=== PATIENT | female | born 1995 ===

== ENCOUNTER 2020-04-15 03:34 | Inpatient (IN) ==
[2020-04-15] MEDS ORDERED: MEPERIDINE 50 MG/1 ML VIAL IV PRN (03:42)
[2020-04-15] MEDS ORDERED: ONDANSETRON 4 MG/2 ML VIAL IV PRN (03:42)
[2020-04-15] MEDS ORDERED: BUTORPHANOL 2 MG/ML VIAL IV PRN (03:42)
[2020-04-15] MEDS: LACTATED RINGERS 1,000 ML IV SCH ×2 (04:28→15:36)
[2020-04-15] MEDS: OXYTOCIN/LR 20 UNIT/1,000 ML BAG IV SCH (04:53)
[2020-04-15] MEDS: CLINDAMYCIN INJ 900 MG in PREMIX 1 EACH IV SCH ×2 (04:54→12:45)
[2020-04-15 05:35] LABS: Basophils % 0.1 % (0.0-0.8); Eosinophils % 0.3 % (0.00-10.9); Hematocrit 34.6 VOL% (35.7-47.0); Immature Granulocytes % 0.3 %; Immature Granulocytes Absolute 0.02 #; Lymphocytes # 1.3 10*3/uL (1.4-4.0); Mean Corpuscular HGB Conc 31.8 GM/DL (32-36); Mean Corpuscular Volume 93.3 FL (87-102); Mean Platelet Volume 10.7 FL (9.6-12.0); Monocytes % 7.1 % (1.7-12.7); Neutrophils % 73.2 % (38.7-73.9); Platelet Count 234 T/CUMM (130-400); Red Blood Count 3.71 MC/CUMM (3.8-5.5); Red Cell Distribution Width 15.4 % (9.3-17.3); White Blood Count 7.1 T/CUMM (4-12)
[2020-04-15 05:49] LABS: Alanine Aminotransferase 14 U/L (13-56); Albumin 2.9 G/DL (3.4-5.0); Alkaline Phosphatase 221 U/L (45-117); Aspartate Amino Transferase 16 U/L (0-37); Bilirubin,Total < 0.39 MG/DL (0.2-1.0); Blood Urea Nitrogen 17 MG/DL (7-18); Estimated Glom Filtration Rate 135 ML/MIN; Glucose 87 MG/DL (74-106); Osmolality,Calculated 273.8 MOS/KG (273-304); Total Protein 7.8 G/DL (6.4-8.3)
[2020-04-15] MEDS ORDERED: CITRIC ACID/SODIUM CITRATE 30 ML UDCUP PO ONE (10:17)
[2020-04-15] MEDS ORDERED: hydrOXYzine HCL 25 MG/1 ML VIAL IM PRN (10:17)
[2020-04-15] MEDS ORDERED: PROMETHAZINE 25 MG/1 ML VIAL IM ONE (10:17)
[2020-04-15] MEDS ORDERED: LACTATED RINGERS 1,000 ML IV ONE (10:17)
[2020-04-15] MEDS ORDERED: FAMOTIDINE 20 MG/2 ML VIAL IV ONE (10:17)
[2020-04-15] MEDS ORDERED: ONDANSETRON 4 MG/2 ML VIAL IV ONE (10:17)
[2020-04-15] MEDS ORDERED: NALOXONE 0.4 MG/ML VIAL IV PRN (10:17)
[2020-04-15] MEDS ORDERED: diphenhydrAMINE 50 MG/1 ML VIAL IV PRN ×2 (10:17)
[2020-04-15] MEDS ORDERED: ePHEDrine 50 MG/ML VIAL IV PRN (10:17)
[2020-04-15] MEDS: fentaNYL 2 MCG/ROPIV 0.2% EPID 100 ML EPIDURAL SCH ×2 (11:16→21:46)
[2020-04-15 12:53] LABS: Apearance,Urine CLEAR (Clear); Bilirubin,Urine Negative (Negative); Blood, Urine Negative (Negative); Glucose,Urine (UA) Negative (Negative); Ketones,Urine Negative (Negative); Mucus,Urine Occasional /LPF (Occasional); Nitrite,Urine Negative (Negative); Protein,Urine Negative; RBC,Urine 1 /HPF (0-4); Squamous Epithelial Cell,Urine Occasional /HPF (0-10); Urine Color Yellow (Yellow); Urine Specific Gravity 1.027 (1.001-1.035); Urine Urobilinogen < 2.0 EU/DL (0.2-1.0); WBC,Urine 2 /HPF (0-6)
[2020-04-16] MEDS: CLINDAMYCIN INJ 900 MG in PREMIX 1 EACH IV SCH ×2 (00:20→05:02)
[2020-04-16] MEDS: OXYTOCIN/LR 20 UNIT/1,000 ML BAG IV SCH (00:25)
[2020-04-16] MEDS: LACTATED RINGERS 1,000 ML IV SCH (01:41)
[2020-04-16] MEDS: fentaNYL 2 MCG/ROPIV 0.2% EPID 100 ML EPIDURAL SCH (05:52)
[2020-04-16] MEDS ORDERED: miSOPROStoL 200 MCG TABLET ONE (07:19)
[2020-04-16] MEDS ORDERED: TRANEXAMIC ACID 1,000 MG/10 ML VIAL ONE (07:19)
[2020-04-16] MEDS ORDERED: OXYTOCIN/LR 20 UNIT/1,000 ML BAG IV ONE ×2 (07:19→12:29)
[2020-04-16] MEDS ORDERED: CARBOPROST TROMETHAMINE 250 MCG/ML AMP IM ONE (07:19)
[2020-04-16] MEDS ORDERED: METHYLERGONOVINE 0.2 MG/1 ML AMP ONE (07:19)
[2020-04-16 10:00] LABS: Cord Arterial Blood HCO3 18.6 MMOL/L
[2020-04-16 10:01] LABS: Cord Venous Blood HCO3 22.3 MMOL/L; Cord Venous Blood PCO2 42.9 MMHG; Cord Venous Blood PO2 29.5 MMHG
[2020-04-16] MEDS ORDERED: HYDROCORTISONE 2.5% RECTAL CREAM 30 GM TUBE TOP PRN (12:29)
[2020-04-16] MEDS ORDERED: oxyCODONE/ACETAMINOPHEN 5-325 MG TABLET PO PRN ×2 (12:29)
[2020-04-16] MEDS ORDERED: ACETAMINOPHEN 325 MG TABLET PO PRN (12:29)
[2020-04-16] MEDS ORDERED: RHO(D) IMMUNE GLOBULIN 300 MCG SYRINGE IM ONE (12:29)
[2020-04-16] MEDS ORDERED: BISACODYL 10 MG SUPP RECTAL PRN (12:29)
[2020-04-16] MEDS ORDERED: WITCH HAZEL PADS 100/JAR TOP PRN (12:29)
[2020-04-16] MEDS ORDERED: MEASLES/MUMPS/RUBELLA VACCINE 0.5 ML VIAL SUBCUT ONE (12:29)
[2020-04-16] MEDS ORDERED: DIPH/TET/ACEL PERT BOOSTER VACCINE 0.5 ML VIAL IM ONE (12:29)
[2020-04-16] MEDS ORDERED: BENZOCAINE 20%/MENTHOL 0.5% SPRAY 56 GM CAN TOP PRN (12:29)
[2020-04-16] MEDS ORDERED: LANOLIN 50% CREAM 0.3 OZ TUBE TOP PRN (12:29)
[2020-04-16] MEDS: IBUPROFEN 800 MG TABLET PO PRN (19:21)
[2020-04-16] MEDS: DOCUSATE SODIUM 100 MG CAPSULE PO SCH ×2 (19:22→23:35)
[2020-04-17 05:42] LABS: Basophils % 0.2 % (0.0-0.8); Eosinophils # 0.1 10*3/uL (0.0-0.87); Eosinophils % 1.5 % (0.00-10.9); Hematocrit 29.1 VOL% (35.7-47.0); Hemoglobin 9.1 GM/DL (12.0-16.0); Immature Granulocytes % 0.4 %; Immature Granulocytes Absolute 0.04 #; Lymphocytes # 1.7 10*3/uL (1.4-4.0); Lymphocytes % 18.6 % (21.3-54.2); Mean Corpuscular HGB Conc 31.3 GM/DL (32-36); Mean Corpuscular Volume 96.4 FL (87-102); Neutrophils % 73.3 % (38.7-73.9); Platelet Count 182 T/CUMM (130-400); Red Blood Count 3.02 MC/CUMM (3.8-5.5); Red Cell Distribution Width 15.9 % (9.3-17.3); White Blood Count 9.2 T/CUMM (4-12)
[2020-04-17] MEDS: DOCUSATE SODIUM 100 MG CAPSULE PO SCH ×2 (09:19→21:05)
[2020-04-18] MEDS: IBUPROFEN 800 MG TABLET PO PRN (02:52)
[2020-04-18 08:17] VITALS: BP 115/69
[2020-04-18] MEDS: DOCUSATE SODIUM 100 MG CAPSULE PO SCH (09:01)
== END 2020-04-18 13:20 | disposition home or self-care (01) | DRG 560 ==
LOC: N.LD 03:34 → N.OB 04-16 12:32
PROVIDERS: ADMIT Obstetrics & Gynecology; ATTEND Obstetrics & Gynecology

== ENCOUNTER 2021-03-11 04:20 | Inpatient (IN) ==
[2021-03-11] MEDS ORDERED: ONDANSETRON 4 MG/2 ML VIAL IV PRN ×2 (04:29→07:44)
[2021-03-11 05:21] LABS: Basophils % 0.3 % (0.0-0.8); Eosinophils % 0.7 % (0.00-10.9); Hematocrit 32.8 VOL% (35.7-47.0); Hemoglobin 10.2 GM/DL (12.0-16.0); Immature Granulocytes % 0.3 %; Immature Granulocytes Absolute 0.02 #; Lymphocytes # 1.2 10*3/uL (1.4-4.0); Lymphocytes % 19.5 % (21.3-54.2); Mean Corpuscular HGB Conc 31.1 GM/DL (32-36); Mean Corpuscular Volume 88.9 FL (87-102); Mean Platelet Volume 10.7 FL (9.6-12.0); Monocytes % 8.3 % (1.7-12.7); Neutrophils % 70.9 % (38.7-73.9); Platelet Count 242 T/CUMM (130-400); Red Blood Count 3.69 MC/CUMM (3.8-5.5); Red Cell Distribution Width 16.4 % (9.3-17.3)
[2021-03-11 05:53] LABS: Alanine Aminotransferase 11 U/L (13-56); Albumin 2.9 G/DL (3.4-5.0); Alkaline Phosphatase 208 U/L (45-117); Aspartate Amino Transferase 12 U/L (0-37); Bilirubin,Total < 0.39 MG/DL (0.2-1.0); Blood Urea Nitrogen 10 MG/DL (7-18); Carbon Dioxide 24 MMOL/L (21-32); Estimated Glom Filtration Rate 140 ML/MIN; Glucose 77 MG/DL (74-106); Osmolality,Calculated 274.5 MOS/KG (273-304); Potassium 3.8 MMOL/L (3.5-5.1); Sodium 139 MMOL/L (136-145); Total Protein 7.8 G/DL (6.4-8.2)
[2021-03-11] MEDS: OXYTOCIN/LR 20 UNIT/1,000 ML BAG IV SCH ×2 (06:05→16:40)
[2021-03-11] MEDS: LACTATED RINGERS 1,000 ML IV SCH ×2 (06:05→09:56)
[2021-03-11] MEDS ORDERED: ePHEDrine 50 MG/ML VIAL IV PRN (07:44)
[2021-03-11] MEDS ORDERED: PROMETHAZINE 25 MG/1 ML VIAL IM PRN (07:44)
[2021-03-11] MEDS ORDERED: FAMOTIDINE 20 MG/2 ML VIAL IV ONE (07:44)
[2021-03-11] MEDS ORDERED: NALOXONE 0.4 MG/ML VIAL IV PRN (07:44)
[2021-03-11] MEDS ORDERED: hydrOXYzine HCL 25 MG/1 ML VIAL IM PRN (07:44)
[2021-03-11] MEDS ORDERED: LACTATED RINGERS 1,000 ML IV ONE (07:44)
[2021-03-11] MEDS ORDERED: CITRIC ACID/SODIUM CITRATE 30 ML UDCUP PO ONE (07:44)
[2021-03-11] MEDS ORDERED: diphenhydrAMINE 50 MG/1 ML VIAL IV PRN ×2 (07:44)
[2021-03-11] MEDS ORDERED: fentaNYL 2 MCG/ROPIV 0.2% EPID 100 ML EPIDURAL SCH (08:00)
[2021-03-11 11:40] LABS: Bacteria,Urine Moderate /HPF (Few); Bilirubin,Urine Negative (Negative); Blood, Urine Negative (Negative); Glucose,Urine (UA) Negative (Negative); Ketones,Urine Negative (Negative); Mucus,Urine Many /LPF (Occasional); Nitrite,Urine Negative (Negative); Protein,Urine 30 MG/DL; RBC,Urine 1 /HPF (0-4); Urine Appearance CLEAR (Clear); Urine Color Yellow (Yellow); Urine Specific Gravity 1.025 (1.001-1.035); Urine Urobilinogen < 2.0 EU/DL (0.2-1.0)
[2021-03-11] MEDS ORDERED: miSOPROStoL 200 MCG TABLET ONE (14:10)
[2021-03-11] MEDS ORDERED: TRANEXAMIC ACID 1,000 MG/10 ML VIAL ONE (14:10)
[2021-03-11] MEDS ORDERED: METHYLERGONOVINE 0.2 MG/1 ML AMP ONE (14:11)
[2021-03-11] MEDS ORDERED: OXYTOCIN/LR 20 UNIT/1,000 ML BAG IV ONE ×2 (14:11→23:47)
[2021-03-11] MEDS ORDERED: CARBOPROST TROMETHAMINE 250 MCG/ML AMP IM ONE (14:11)
[2021-03-11] MEDS ORDERED: SODIUM CHLORIDE 0.9% 0 ML IV ONE (14:12)
[2021-03-11] MEDS ORDERED: fentaNYL 100 MCG/2 ML VIAL ONE (14:49)
[2021-03-11] MEDS ORDERED: LIDOCAINE MPF 2% /EPI 20 ML VIAL ONE (14:49)
[2021-03-11 16:10] LABS: Cord Arterial Blood HCO3 25.5 MMOL/L
[2021-03-11 16:13] LABS: Cord Venous Blood HCO3 23.5 MMOL/L; Cord Venous Blood PCO2 41.3 MMHG; Cord Venous Blood PO2 32.6 MMHG
[2021-03-11] MEDS ORDERED: LANOLIN 50% CREAM 0.3 OZ TUBE TOP PRN (23:47)
[2021-03-11] MEDS ORDERED: IBUPROFEN 800 MG TABLET PO PRN (23:47)
[2021-03-11] MEDS ORDERED: ACETAMINOPHEN 325 MG TABLET PO PRN (23:47)
[2021-03-11] MEDS ORDERED: BISACODYL 10 MG SUPP RECTAL PRN (23:47)
[2021-03-11] MEDS ORDERED: RHO(D) IMMUNE GLOBULIN 300 MCG SYRINGE IM ONE (23:47)
[2021-03-11] MEDS ORDERED: BENZOCAINE 20%/MENTHOL 0.5% SPRAY 56 GM CAN TOP PRN (23:47)
[2021-03-11] MEDS ORDERED: MEASLES/MUMPS/RUBELLA VACCINE 0.5 ML VIAL SUBCUT ONE (23:47)
[2021-03-11] MEDS ORDERED: DIPH/TET/ACEL PERT BOOSTER VACCINE 0.5 ML VIAL IM ONE (23:47)
[2021-03-11] MEDS ORDERED: oxyCODONE/ACETAMINOPHEN 5-325 MG TABLET PO PRN ×2 (23:47)
[2021-03-11] MEDS ORDERED: HYDROCORTISONE 2.5% RECTAL CREAM 30 GM TUBE TOP PRN (23:47)
[2021-03-11] MEDS ORDERED: WITCH HAZEL PADS 100/JAR TOP PRN (23:47)
[2021-03-12 05:31] LABS: Basophils % 0.2 % (0.0-0.8); Eosinophils # 0.1 10*3/uL (0.0-0.87); Eosinophils % 0.5 % (0.00-10.9); Hematocrit 30.2 VOL% (35.7-47.0); Hemoglobin 9.6 GM/DL (12.0-16.0); Immature Granulocytes % 0.3 %; Immature Granulocytes Absolute 0.03 #; Lymphocytes # 1.1 10*3/uL (1.4-4.0); Lymphocytes % 10.7 % (21.3-54.2); Mean Corpuscular HGB Conc 31.8 GM/DL (32-36); Mean Corpuscular Volume 87.3 FL (87-102); Mean Platelet Volume 10.8 FL (9.6-12.0); Monocytes % 6.7 % (1.7-12.7); Neutrophils % 81.6 % (38.7-73.9); Platelet Count 191 T/CUMM (130-400); Red Blood Count 3.46 MC/CUMM (3.8-5.5); Red Cell Distribution Width 16.5 % (9.3-17.3); White Blood Count 9.9 T/CUMM (4-12)
[2021-03-12] MEDS: DOCUSATE SODIUM 100 MG CAPSULE PO SCH ×2 (11:04→20:52)
[2021-03-13] MEDS: DOCUSATE SODIUM 100 MG CAPSULE PO SCH (08:37)
[2021-03-13 11:07] VITALS: BP 113/73
== END 2021-03-13 12:36 | disposition home or self-care (01) | DRG 560 ==
LOC: N.LD 04:20 → N.OB 20:35
PROVIDERS: ADMIT Obstetrics & Gynecology; ATTEND Obstetrics & Gynecology